=== PATIENT | male | born 1980 | race Hispanic/Latino ===

== ENCOUNTER 2018-04-04 07:42 | Emergency (ER) | payer BC, OTHER ==
[~2018-04-04] VITALS: Ht 175.3 cm; Wt 90.7 kg
== END 2018-04-04 08:40 | disposition left against medical advice (07) ==
LOC: ER 07:42
DX: M54.41 Lumbago with sciatica, right side (principal)

== ENCOUNTER 2018-04-04 08:52 | Emergency (ER) | payer BC ==
[~2018-04-04] VITALS: Ht 175.3 cm; Wt 93.4 kg
[2018-04-04 09:56] VITALS: BP 150/80
== END 2018-04-04 10:00 | disposition home or self-care (01) ==
LOC: FSED 08:52
DX: M54.41 Lumbago with sciatica, right side (principal); R03.0 Elevated blood-pressure reading, without diagnosis of hypertension; F17.210 Nicotine dependence, cigarettes, uncomplicated
CPT/HCPCS: 99282